=== PATIENT | female | born 1975 | race Caucasian/White ===

== ENCOUNTER 2018-09-25 22:36 | Emergency (ER) | payer OTHER, MEDICAID ==
[2018-09-26] MEDS: DIPHTH/TET/ACEL PERTUSS (ADULT) 0.5 ML VIAL IM* (00:11)
[2018-09-26] MEDS: LIDOCAINE 1% (MPF) 5 ML VIAL INJ (00:12)
[2018-09-26] MEDS: IBUPROFEN 800 MG TAB PO (00:12)
[2018-09-26] MEDS: CEFTRIAXONE 1 GM INJ IM (00:12)
== END 2018-09-26 00:55 | disposition home or self-care (01) ==
LOC: FTE 22:36
DX: L03.011 Cellulitis of right finger (principal); Z23 Encounter for immunization
CPT/HCPCS: 90471; 90715; 96372; 99284-25

== ENCOUNTER 2018-11-21 17:47 | Emergency (ER) | payer OTHER ==
[2018-11-21] MEDS: SOD CHLORIDE 0.9% 1,000 ML IV (18:55)
[2018-11-21] MEDS: KETOROLAC 30 MG INJ IV (18:57)
[2018-11-21] MEDS: PROCHLORPERAZINE 10 MG INJ IV (19:01)
[2018-11-21] MEDS: DIPHENHYDRAMINE 50 MG INJ IV (19:01)
[2018-11-21] MEDS: ACETAMINOPHEN 325 MG TAB PO (19:06)
[2018-11-21] MEDS: VALPROATE INJ 500 MG in SOD CHLORIDE 0.9% 50 ML IVPB (19:09)
== END 2018-11-21 21:07 | disposition home or self-care (01) ==
LOC: E/R 17:47
DX: S06.0X1A Concussion with loss of consciousness of 30 minutes or less, initial encounter (principal); W18.39XA Other fall on same level, initial encounter; Y92.89 Other specified places as the place of occurrence of the external cause
CPT/HCPCS: 96361; 96365; 96375; 99284-25